=== PATIENT | female | born 1960 | race Caucasian/White ===

== ENCOUNTER 2023-05-29 17:04 | Emergency (ER) | payer BC, SELFPAY ==
[2023-05-29 17:06] VITALS: BP 133/68
[2023-05-29 17:11] VITALS: BP 133/68
[2023-05-29 17:20] VITALS: BMI 28.8
--- NOTE | 2023-05-29 17:24 | ED.GENMED ---
History of Present Illness
General
Chief Complaint: Fainting/Passed Out
Source: patient
Time Seen by Provider: 05/29/23 17:11
Travel History
Have you had any contact with someone who has COVID-19?: No
Do you have any symptoms of coronavirus? Fever > 100 degrees, chills, cough, shortness of breath, sore throat, loss of taste or smell, muscle aches, or headache?: No
History of Present Illness
History of Present Illness:
62-year-old female presents to the emergency room after having a syncopal episode at home. Patient states she was sitting watching [employer] and had just finished having a beer when she began to feel dizzy. Her vision started to fade from the
outside towards the center. She got up to go get some fresh air and evidently passed out. No injuries. Patient denies any chest pain, shortness of breath, abdominal pain, back pain, focal weakness, numbness or tingling. Patient states that she
also consumed a THC gummy today. She does not typically take Gummies. She did have a syncopal episode a few years ago while at a [employer]. She did have a Holter monitor placed after that which showed no heart rhythm abnormalities. She
denies any significant medical history. She denies any recent travel. She denies any pleuritic type chest pain.
Phy Exam
Physical Exam
Physical Exam:
General: Awake, Alert, Oriented X3. No acute distress.
Vitals: unremarkable
Head: Atraumatic
Eyes: Pupils equal, EOMI
Throat: Airway intact, no exudates
Neck: Trachea midline
Lungs: Clear and equal b/l
Heart: Regular rate, no murmurs
Abd: Soft, Nontender, No pulsatile mass
Neuro: Cranial nerves intact, muscle strength equal bilaterally
Skin: Warm, dry, no rash
Extremities: pulses equal b/l, no edema
Course
Orders/Labs/Results
Orders:
Orders
05/29/23 17:06
Electrocardiogram (*1) Urgent
Reason for Study: Chest Pain
Cardiac Monitoring- Treatment ONCE
EKG- Treatment ONCE
IV Insert/Care/Rem.- Treatment PRN
Pulse Ox/spot Check [RESP] Urgent
Quantity: 1
Special Instructions: ON ROOM AIR
05/29/23 17:24
0.9% Sodium Chloride 500 ml [Nss] 500 ml IV BOLUS
05/29/23 17:29
Complete Blood Count/With Diff Urgent
Comprehensive Metabolic Panel Urgent
Abnormal Lab Results
05/29/23
17:29
RBC 3.92 L 10^6/uL
(4.20-5.40)
Hct 36.2 L %
(37.0-47.0)
MCH 33.2 H pg
(27.0-31.0)
MPV 11.7 H fL
(7.4-10.4)
Glucose 108 H mg/dl
(70-99)
Calcium 10.8 H mg/dl
(8.4-10.2)
05/29/23 17:29
05/29/23 17:29
Vital Signs
Initial and Last Documented VS:
Initial Vital Signs
Temp Pulse Resp BP Pulse Ox
97.9 F 83 17 133/68 99
05/29/23 17:06 05/29/23 17:06 05/29/23 17:06 05/29/23 17:06 05/29/23 17:06
Last Documented Vital Signs
Temp Pulse Resp BP Pulse Ox
97.9 F 87 17 114/72 95
05/29/23 17:06 05/29/23 19:15 05/29/23 19:15 05/29/23 19:00 05/29/23 19:15
MDM/Problems Addressed
Differential Diagnosis Includes:
Vasovagal syncope, anemia, dysrhythmia
MDM/Problems Addressed:
Patient presents with syncope. I suspect this is vasovagal in nature particularly given the use of a THC gummy today which is unusual for her. Will obtain labs to exclude any anemia or electrolyte abnormality. Will watch the patient on the
monitor. Her EKG shows first-degree AV block.\\
After period of observation the patient has remained totally stable. Normal heart rate on the monitor. She is ambulated without difficulty. Suspect patient had vasovagal event perhaps related to her marijuana gummy. However she is stable for
discharge home.
*Pulse Oximetry
Patient hypoxic: no
*EKG
Interpreted by ED Provider?: Yes
Interpretation: abnormal
Heart Rate: 83
Rate: normal
Rhythm: sinus
Interval: first degree heart block
Ischemia: non-specific ST changes
*[employer] Interpretation
Rate: normal
Interpretation: normal
Rhythm: sinus
*Critical Care Note
Total Time (30-74mins, 75-104mins- exclusive of procedures): Not Applicable
Patient Management
Social determinants of health affecting care: Strong social support
ED Attending Note
-
Portions of this chart may have been created with voice recognition software.� Occasional wrong word or��sound alike� substitutions may have occurred due to the inherent limitations of voice recognition software.
Discharge Plan
Departure
Patient Disposition: Home (Routine Discharge)
Date of Disposition: 05/29/23
Time of Disposition: 19:03
Patient with high blood pressure during this ER visit?: No
Condition: Good
Discharge Problem:
Syncope
Instructions: Syncope (Fainting) (DC)
Referrals:
Sarai Mathis DO [Family Provider] -
Interventions
Interventions:
*Risk Screen - Suicide Last Done: 05/29/23 17:06
*General Assessment Last Done: 05/29/23 17:06
*Neglect/Abuse Screening Last Done: 05/29/23 17:06
ED- Fall Risk Assessment Last Done: 05/29/23 17:47
*ED COVID-19 Vaccine History Last Done: 05/29/23 17:21
*Nursing Disposition Last Done: 05/29/23 19:38
ED- Cardiac Assessment Last Done: 05/29/23 17:47
ED- Neurological Assessment Last Done: 05/29/23 17:47
Discharge Date and Time
Discharge Date/Time: 05/29/23 19:38
Print Language: [id number]
[2023-05-29] MEDS: NSS 500 IV (17:30)
[2023-05-29 17:35] LABS: % Basophils 0.7 % (0-2); % Immature Granulocytes 0.3 % (0-0.5); % Lymphocytes 36.4 % (20.5-51.1); % Monocytes 9.2 % (1.7-9.3); % Neutrophils 51.4 % (42.2-75.2); Absolute Eosinophils 0.1 10^3/uL (0-0.7); Absolute Lymphocytes 2.2 10^3/uL (1.2-3.4); Absolute Monocytes 0.6 10^3/uL (0.1-0.6); Absolute Neutrophils 3.2 10^3/uL (1.4-6.5); Hematocrit 36.2 % (37.0-47.0); Mean Corp Hgb Conc. 35.9 g/dL (33.0-37.0); Mean Corpuscular Hgb 33.2 pg (27.0-31.0); Mean Corpuscular Volume 92.3 fL (81.0-99.0); Mean Platelet Volume 11.7 fL (7.4-10.4); Nucleated Red Blood Cells % 0 %; Platelet Count 178 10^3/uL (130-400); Red Blood Cell Count 3.92 10^6/uL (4.20-5.40); Red Cell Dist. Width 12.9 % (11.5-14.5); White Blood Cell Count 6.1 10^3/uL (4.8-10.8)
[2023-05-29 17:51] LABS: ALT (SGPT) 28 U/L (0-35); AST (SGOT) 33 U/L (14-36); Albumin 4.8 g/dl (3.5-5.0); Alkaline Phosphatase 54 U/L (38-126); Blood Urea Nitrogen 13 mg/dl (7-17); Calcium 10.8 mg/dl (8.4-10.2); Carbon Dioxide 23 mmol/L (22-30); Chloride 102 mmol/L (98-107); Estimated Creatinine Clearance 87 ml/min; Glucose 108 mg/dl (70-99); Potassium 4.1 mmol/L (3.5-5.1); Sodium 136 mmol/L (135-145); Total Bilirubin 0.3 mg/dl (0.2-1.3); Total Protein 7.4 g/dl (6.3-8.2); eGFR > 60.00
[2023-05-29 18:00] VITALS: BP 131/74
[2023-05-29 18:57] VITALS: BP 135/69
[2023-05-29 19:00] VITALS: BP 114/72
== END 2023-05-29 19:38 | disposition home or self-care (01) ==
LOC: EMR 17:04
PROVIDERS: Emergency Medicine; EMERGENCY PHYSICIAN Emergency Medicine; FAMILY PHYSICIAN Family Medicine
DX: R55 Syncope and collapse (principal); R42 Dizziness and giddiness; D64.9 Anemia, unspecified
CPT/HCPCS: 99284; 80053; 85025; 93005